=== PATIENT | male | born 1945 | race Caucasian/White ===

== ENCOUNTER 2017-05-11 06:58 | Inpatient (IN) ==
--- NOTE | 2017-05-10 20:54 | Discharge Summary ---
<Louie Sethi - Last Filed: 05/11/17 08:17> Date of Encounter: 05/11/17 - Discharge Diagnosis (1) Left rotator cuff tear arthropathy Priority: Primary Status: Chronic (2) Status post reverse total shoulder replacement Priority: Primary Status: Acute Qualifiers: Laterality: left Qualified Code(s): Z96.612 - Presence of left artificial shoulder joint - Discharge Medications Home Medications: OxyCODONE Immed Rel [Roxicodone 5 MG] 5 mg PO Q6HR PRN 7 Days #28 tablet [Rx] Fluticasone Propionate Nasal [Flonase] 1 spray NS DAILY 05/11/17 [History] Loratadine [Claritin] 10 mg PO DAILY 05/11/17 [History] Meloxicam 15 mg PO DAILY 05/11/17 [History] Mv-Mn/FA/Vit K/Lycop/Lut/Coq10 [Daily Multivitamin Capsule] 1 tab PO DAILY 05/11 [History] Simvastatin [Zocor] 40 mg PO HS 05/11/17 [History] Tramadol HCl [Ultram] 100 mg PO BID PRN 05/11/17 [History] Vitamin E 1,000 unit PO DAILY 05/11/17 [History] Allergies/Adverse Reactions: 3 Allergy/AdvReac Type Severity Reaction Status Date / Time No Known Allergies Allergy Verified 05/11/17 07:23 Primary care physician: PCP NONE - Patient Status Disposition: Home, Self-Care Condition: Good - Discharge Instructions Follow Up With: Louie Sethi MD [Partnered Physician] - 06/10/17 4:35 pm Uma Rudolph PAC [Physician Candy Vendor] - 05/21/17 1:30 pm NONE,PCP [Primary Care Provider] - Additional Instructions: Discharge Instructions: Total Shoulder Please call [facility] ([phone]), your Primary Care Physician, or report to the Emergency Room if you have any of the following symptoms: Nausea, vomiting, fever greater that 101.5, swelling, chest pain, shortness of breath, increased pain/redness/drainage/odor for your incision site, numbness/ tingling, or any other concerning symptoms. ACTIVITY: Always keep your arm in the sling. Do not raise your arm away from your body. Do not use your arm to help with getting in or out of bed. No weight bearing permitted. Only perform those exercises given to you by your therapist. MEDICATIONS: Upon discharge resume your home medications. Take all the medications as prescribed. Take a stool softener if taking narcotic pain medications. Stool softeners are only effective if you drink enough fluids. Drink 6-8 glass of water or fluids a day, unless this is not allowed for another health problem. Despite using stool softeners, if you haven't had a bowel movement in 3 days, please switch to a gentle laxative. Gentle laxatives are sold over the counter. You should have a bowel movement within 24 hours, if not call the office. You will be discharged from the hospital with a prescription for pain medication. You are encouraged to decrease the use of narcotic pain medication as tolerated. Should you require a refill, please call the office. [facility] prescribes narcotic pain medication for only 4-6 weeks after surgery. If you require pain medication beyond this time period, you may be referred to your Primary Care Physician or to the Pain Clinic for further evaluation. Plan ahead for refills on pain medication as many narcotics either need to be picked up at the office or mailed. It is best to call 48-72 hours in advance of needing a prescription refill so you don't run out of medication. To help control the post-operative pain, you may take NSAIDs (Aleve,Advil, Motrin, Ibuprofen, Naprosyn) or Tylenol as prescribed on the bottle in addition to the pain medication. WOUND CARE: Leave the dressing on for 7-10 days. You may change the dressing if it becomes saturated greater than 50%. Do not get the dressing wet at anytime. Wash your hands with antibacterial soap, rinse and dry prior to any wound care. If you have raissa the visiting nurse or rehab facility can remove the stapes 10-14 days after surgery and place steri-strips across the wound. Leave the steri-strips in place until they fall off on their own. You may let water from the shower run on top of the steri-strips. If you do not have a visiting nurse or rehab facility, you will need to return to the office at 10-14 days for the raissa to be removed. If you have itching or redness around the dressing call the office. FOLLOW-UP: Please follow up with your surgeon in the orthopedic clinic, as scheduled - Hospital Course Hospital course: Mr. Tong is a 72 year old male - Time Spent with Patient Total time spent providing and/or coordinating discharge services: <Uma Rudolph - Last Filed: 05/13/17 11:32> Date of Encounter: 05/13/17 Time of Encounter: 11:30 - Discharge Diagnosis (1) Left rotator cuff tear arthropathy Priority: Primary Status: Chronic (2) Status post reverse total shoulder replacement Priority: Primary Status: Acute Qualifiers: Laterality: left Qualified Code(s): Z96.612 - Presence of left artificial shoulder joint (3) HLD (hyperlipidemia) Priority: Secondary Status: Chronic Qualifiers: Hyperlipidemia type: unspecified Qualified Code(s): E78.5 - Hyperlipidemia , unspecified Primary care physician: PCP NONE - Patient Status Functional capacity at discharge: independent ambulation Overall status at discharge: patient is back to baseline - Hospital Course Hospital course: Mr. Tong is a 72 year old male - Time Spent with Patient Total time spent providing and/or coordinating discharge services:
[2017-05-11] MEDS ORDERED: Ethanol\\Acetic Acid\\Na Ace\\Ben 1,000 ML IRRIG.SOLN IR ONE (07:16)
--- NOTE | 2017-05-11 07:39 | Anesthesia Evaluation PreOp ---
Date of Encounter: 05/11/17 Time of Encounter: 07:37 - Past History Planned Operation: Left shoulder, reverse ball and socket Cardiac History: Hyperlipidemia Pulmonary History: Denies Any Significant HX PROOFER PREPRESS History: Denies Any Significant HX Other Medical History: Denies Any Significant HX Anesthesia History: No Prior Anesthetic Complications, Past Anesthesia (cathy TKR , hernia, spine, L forearm, L heel bone spur removal, R foot bone removed) Medications and Allergies OxyCODONE Immed Rel [Roxicodone 5 MG] 5 mg PO Q6HR PRN 7 Days #28 tablet [Rx] Fluticasone Propionate Nasal [Flonase] 1 spray NS DAILY 05/11/17 [History] Loratadine [Claritin] 10 mg PO DAILY 05/11/17 [History] Meloxicam [Meloxicam] 15 mg PO DAILY 05/11/17 [History] Mv-Mn/FA/Vit K/Lycop/Lut/Coq10 [Daily Multivitamin Capsule] 1 tab PO DAILY 05/11 [History] Simvastatin [Zocor] 40 mg PO HS 05/11/17 [History] Tramadol HCl [Ultram] 100 mg PO BID PRN 05/11/17 [History] Vitamin E 1,000 unit PO DAILY 05/11/17 [History] 3 Allergy/AdvReac Type Severity Reaction Status Date / Time No Known Allergies Allergy Verified 05/11/17 07:23 - Meds/Allergy Pre-op Review Medications Reviewed: Yes Allergies Reviewed: Yes Beta Blockers on Current Med List: No Anesthesia Results - Labs Laboratory Tests 04/30/17 04/30/17 04/30/17 11:16 11:16 11:16 WBC 5.1 Hgb 13.3 Hct 41.7 Plt Count 215 PT 10.8 INR 1.0 APTT 28.8 Sodium 140 Potassium 4.1 Chloride 106 Carbon Dioxide 25 BUN 15 Creatinine 0.83 Est GFR ( Amer) > 60 Est GFR (Non-Af Amer) > 60 BUN/Creatinine Ratio 18 Glucose 82 Calculated Osmolality 290 Calcium 9.6 Anesthesia Exam Last Vital Signs Temp 98.1 F 05/11/17 07:18 Pulse 68 05/11/17 07:18 Resp 18 05/11/17 07:18 BP 159/93 05/11/17 07:18 Pulse Ox 97 05/11/17 07:18 Weight: 94 kg NPO (# of Hours): > 8 hrs - HEENT Pupil (Motor): Pupils equal, EOMI Mallampati: III Teeth: Normal Oral Opening: Greater than 3 - PROOFER PREPRESS LOC: Oriented PROOFER PREPRESS Motor: Normal RUE, Normal LUE, Normal RLE, Normal LLE, Normal Face - Cardiac Rhythm: Regular Murmur: None - Pulmonary Breath Sounds: bilateral Clear Respiratory Effort: Symmetrical Anesthesia Assess/Plan ASA Score: 2 Modified Vivek Scale for Level of Consciousness: Cooperative, oriented, and tranquil Anesthetic Plan: General, Regional Monitoring Plan: Standard Monitors Recovery Plan: PACU
[2017-05-11] MEDS ORDERED: CeFAZolin Pre 2,000 MG/100 ML 2,000 MG/100 ML BAG IVPB ONE (07:59)
[2017-05-11] MEDS ORDERED: Ringers Solution, Lactated 1,000 ML IVC SCH ×2 (08:00→10:38)
--- NOTE | 2017-05-11 08:01 | History & Physical Report ---
Date of Encounter: 05/11/17 Time of Encounter: 08:01 24 Hour HP Update - Instructions Instructions: If the History and Physical is less than 30 days old and was completed prior to A.M. admission and or procedure and has NOT been updated on calendar day of procedure please complete this update prior to performing procedure. - Update Patient reports changes in Medical Condition: No Changes in examination, assessment, or condition: No Changes in Medication: No Preop tests/diagnostics Reviewed: Yes Surgery Remains Indicated: Yes Consent for Planned Operative Procedure(s) Verified: Yes - Pre-Operative Checklist Preoperative Checklist Indicated: No Prophylactic Antibiotic Ordered: Yes Is VTE Prophylaxis Indicated?: Yes
[2017-05-11] MEDS ORDERED: Dexamethasone 4 MG/ML VIAL ONE ×2 (08:05→08:41)
[2017-05-11] MEDS ORDERED: ROPIVACAINE HCL/PF 0.5% 30 ML VIAL ONE ×2 (08:05→08:41)
[2017-05-11] MEDS ORDERED: Acetaminophen IV 1,000 MG/100 ML INFUS..BTL ONE (08:41)
[2017-05-11] MEDS ORDERED: *HR* Midazolam HCl 2 MG/2 ML VIAL ONE (08:41)
[2017-05-11] MEDS ORDERED: *HR* FentaNYL (PF) 100 MCG/2 ML VIAL ONE (08:41)
[2017-05-11] MEDS ORDERED: *HR* Propofol 200 MG/20 ML VIAL IVP ONE (08:41)
[2017-05-11] MEDS ORDERED: Lidocaine -MPF 2% 2 ML VIAL ONE (08:41)
[2017-05-11] MEDS ORDERED: Ketorolac 30 MG/ML VIAL ONE (08:43)
[2017-05-11] MEDS ORDERED: *HR* HYDROmorphone (PF) 1 MG/ML SYRINGE IVP PRN ×2 (08:50→10:38)
[2017-05-11] MEDS ORDERED: Ondansetron 4 MG/2 ML VIAL IVP PRN ×2 (08:50→10:38)
--- NOTE | 2017-05-11 08:55 | Anesthesia Procedures ---
Date of Encounter: 05/11/17 Time of Encounter: 08:30 Procedures: Anesthesia - Nerve Block Procedure Date: 05/11/17 Time: 08:30 Allergies/Adv Reactions: nka Pre-op Diagnosis: left shoulder RC arthropathy Surgical Procedure: left TSA reverse Checklist: Correct Patient Identifier, Correct procedure, History checked Correct side: Left Blood Thinner: No Monitor Applied: EKG, BP, Pulse Oximetry Supplemental Oxygen via Nasal Cannula (L/min): 2 Sedation: Versed (mg): 2 Sedation: Fentanyl (mcg): 100 Indication: Post Op Analgesia Pre-op Neuro Deficits: No Block Type: Interscalene (25mL), Other (CP 5mL) Catheter placed: No Sterile Technique: Yes Ultrasound used: Yes Anatomy identified: Yes Visual spread of Local: Yes Neuro Stimulation: No Blood on Needle Aspiration: No Smooth Injection of Local: Yes Pain with Injection of Local: No Prep: Chlorhexadine Needle: 22 x 50 mm Stimuplex Local: Ropivacaine, Other (decadron 10mg) Volume (cc): 30 Number of Attempts: 1 Complications: None/effective block Vitals: Vital Signs/O2 Sat/Glucose, Most Recent Temp Pulse Resp BP Pulse Ox 98.1 F 61 16 157/91 99 05/11/17 07:18 05/11/17 08:29 05/11/17 08:29 05/11/17 08:29 05/11/17 08:29
--- NOTE | 2017-05-11 09:23 | Orthopedic Operative Note ---
Date of procedure: 05/11/17 Pre-op diagnosis: Left shoulder cuff tear arthropathy Post-op diagnosis: same Procedure: Procedure: Left Total Shoulder Replacment Reverse, biceps tenodesis Estimated blood loss: 100 cc Hardware: Metal and polyethylene replacement: Arthrex large glenoid baseplate, 2 4.5 screws. 1 6.5 screw, 42+4 glenosphere, 12 humeral stem, poly insert 6 Exam Under anesthesia: Full motion no instability Procedural Notes: Grade 3 arthritic changes humeral head glenoid socket, irreparable tear supraspinatus tendon. Operative procedure: The patient was brought to the operating room and placed on the operating room table. After general anesthesia was administered the operative shoulder was examined. Findings were noted. The patient was placed in the modified beachchair position. All pressure points were padded appropriately. And the head was stabilized in the neutral position. The operative extremity was prepped and draped in the sterile surgical fashion. The patient received IV antibiotics prior to skin incision. A standard deltopectoral approach was made to the operative shoulder. Incision was made to the skin and subcutaneous tissue,hemo stasis was obtained with Bovie cautery. Using careful blunt dissection the cephalic vein was identified and mobilized medially. The deltopectoral interval was developed and the clavipectoral fascia was incised. The subscap was released off the lesser tuberosity and tagged with #2 FiberWire suture subscap was irreparable. The humerus was dislocated patient noted to have irreparable tear supraspinatus tendon, and the humeral cut was made along the anatomic neck. Patient noted to have grade 3 arthritic changes humeral head. Anterior and posterior Bankart retractors were placed to expose the glenoid. Patient at that grade 3 arthritic changes glenoid socket. The glenoid guide was seated and the centering hole was made. It was reamed with the appropriate reamer. The large baseplate was seated and secured with (2) 4.5 screws and one 6.5 screw. The baseplate was irrigated and dried and the 42+4 Glenosphere was seated and secured with the Morrison taper. The Morrison taper was tested and found to be secure the humerus was redislocated and prepared with the diaphyseal reamers, followed by a broaching process up to the appropriate size 12 in the patient's anatomic version. The metaphyseal reamer was then utilized. Trial reduction found the shoulder to be relocatable. Trial components were removed and drill holes were placed in the lesser tuberosity. They were filled with #5 FiberWire suture incorporating the biceps tendon. The appropriate 12 stem was impacted in place in the patient's anatomic version. Trial reduction found the shoulder to be relocatable and stable with the appropriate 6 Trial component was removed and the real 6 Kristen was seated and secured the shoulder was reduced. The shoulder had excellent motion and excellent stability and no evidence of dislocation. The deep tissue was irrigated with pulse irrigation. The biceps was tenodesed, the PA close the shoulder. The deltopectoral interval was closed with a running #1 PDS suture, subcutaneous tissue was irrigated and closed with 0 PDS suture, the skin was closed with Dermabond. The patient was placed in a sterile dressing, abduction brace and extubated. The patient was then transferred to the recovery room in stable condition. Anesthesia: DUYEN Surgeon: Louie Sethi Laboratory Mechanic Helper: Nessa Wyatt Condition: stable Disposition: PACU
[2017-05-11] MEDS ORDERED: *HR* Labetalol 20 MG/4 ML SYRINGE IVP PRN (09:43)
--- NOTE | 2017-05-11 10:16 | Anesthesia Evaluation Post Op ---
Date of Encounter: 05/11/17 Time of Encounter: 10:15 - Vital Signs Vital Signs: Vital Signs/O2 Sat, Most Current Temp Pulse Resp BP Pulse Ox 97.8 F 61 12 166/91 98 05/11/17 10:08 05/11/17 10:08 05/11/17 10:08 05/11/17 10:08 05/11/17 10:08 - Lungs Lungs: Clear Ascult./Percussion - Airway Airway: Non-obstructed - Cardiovascular Regular Rate - Mental Status Mental Status: Alert & Oriented, Answers Appropriately - Pain Pain Scale: 0 - Nausea Vomiting Nausea Vomiting: Not Present - Hydration Hydration: Ice chips, Has not voided - Discharge PostOp Status: Transfer Patient to floor
[2017-05-11 10:28] LABS: Hematocrit 39.2 % (37.5-50.1); Hemoglobin 12.1 g/dL (12.9-16.9)
[2017-05-11] MEDS ORDERED: Loratadine 10 MG TABLET PO SCH (10:38)
[2017-05-11] MEDS ORDERED: Naloxone 0.4 MG/ML INJ IVP PRN (10:38)
[2017-05-11] MEDS ORDERED: *HR* OxyCODONE Immed Rel 5 MG TABLET PO PRN ×2 (10:38)
[2017-05-11] MEDS ORDERED: Fluticasone Propionate Nasal 50 MCG/SPRAY BOTTLE NS SCH (10:38)
[2017-05-11] MEDS ORDERED: traMADol 50 MG TABLET PO PRN (10:38)
[2017-05-11] MEDS ORDERED: Multivit/Ca/Min/Fe/FA 1 TAB TABLET PO SCH (10:38)
[2017-05-11] MEDS ORDERED: ceFAZolin 2,000 MG in D5% in Water 100 ML IVPB SCH (12:00)
[2017-05-11 14:44] VITALS: BP 140/82
[2017-05-11] MEDS ORDERED: *HR* Enoxaparin 30 MG/0.3 ML SYRINGE SQ SCH ×4 (15:05→18:00)
--- NOTE | 2017-05-11 20:27 | Electrocardiograph Report ---
[place] [id number] Test Date: 2017-05-11 Pat Name: Bhavin Tong Department: [id number] Room: [facility] Gender: M Computer Salesperson Retail: YOEL : 1945 Requested By: Louie Sethi Order Number: [id number] Reading MD: Chetan Moody MD Measurements Intervals [place] Rate: 60 P: 3 ID: [id number] QRS: 6 QRSD: 100 T: 25 QT: 403 QTc: 404 Interpretive Statements SINUS RHYTHM BASELINE ARTIFACT Electronically Signed On 05-11-2017 20:25:25 EDT by Chetan Moody MD
[2017-05-11] MEDS ORDERED: MOM Conc 10 ML UD.LIQ PO PRN (21:00)
[2017-05-11] MEDS ORDERED: Sennosides 8.6 MG TABLET PO PRN (21:00)
[2017-05-11] MEDS ORDERED: Temazepam 15 MG CAPSULE PO PRN (21:00)
== END 2017-05-11 16:25 | disposition home or self-care (01) | DRG 483 ==
LOC: SAMDAY 06:58 → 3NENU 10:29
PROVIDERS: ADMIT Orthopaedic Surgery; ATTEND Orthopaedic Surgery

== ENCOUNTER 2018-02-05 12:26 | Inpatient (IN) ==
--- NOTE | 2018-02-05 13:11 | Anesthesia Evaluation PreOp ---
Date of Encounter: 02/05/18 Time of Encounter: 13:09 - Past History Planned Operation: Left Total Shoulder Cardiac History: Hyperlipidemia Pulmonary History: Denies Any Significant HX MOLDING PRESS OPERATOR History: Denies Any Significant HX Other Medical History: Denies Any Significant HX Anesthesia History: No Prior Anesthetic Complications, Past Anesthesia (cathy TKR , hernia, spine, L forearm, L heel bone spur removal, R foot bone removed, Left TSR) Alcohol Use: none Drug use: none Medications and Allergies OxyCODONE Immed Rel [Roxicodone 5 MG] 5 mg PO Q6HR PRN 7 Days #28 tablet [Rx] Fluticasone Propionate Nasal [Flonase] 1 spray NS DAILY 05/11/17 [History] Loratadine [Claritin] 10 mg PO DAILY 05/11/17 [History] Meloxicam 15 mg PO DAILY 05/11/17 [History] Mv-Mn/FA/Vit K/Lycop/Lut/Coq10 [Daily Multivitamin Capsule] 1 tab PO DAILY 05/11 [History] Simvastatin [Zocor] 40 mg PO HS 05/11/17 [History] Tramadol HCl [Ultram] 100 mg PO BID PRN 05/11/17 [History] Vitamin E 1,000 unit PO DAILY 05/11/17 [History] 3 Allergy/AdvReac Type Severity Reaction Status Date / Time No Known Allergies Allergy Verified 05/11/17 07:23 - Meds/Allergy Pre-op Review Medications Reviewed: Yes Allergies Reviewed: Yes Beta Blockers on Current Med List: No Anesthesia Results - Labs Laboratory Tests 04/30/17 04/30/17 04/30/17 11:16 11:16 11:16 WBC 5.1 Hgb Hct Plt Count 215 INR 1.0 Sodium 140 Potassium 4.1 Chloride 106 Carbon Dioxide 25 BUN 15 Creatinine 0.83 05/11/17 09:55 WBC Hgb 12.1 L Hct 39.2 Plt Count INR Sodium Potassium Chloride Carbon Dioxide BUN Creatinine - Imaging EKG: report reviewed (SR) Anesthesia Exam O2 Sat Height 1.83 m Height 1.83 m Weight 97.069 kg Weight 97.069 kg O2 Sat by Pulse Oximetry 99 Vital Signs Temp Pulse Resp BP Pulse Ox 98.4 F 65 18 155/86 99 02/05/18 12:43 02/05/18 12:43 02/05/18 12:43 02/05/18 12:43 02/05/18 12:43 NPO (# of Hours): > 8 hrs Pain Scale: 0 Pain Scale Used: Numeric (1 - 10) - HEENT Pupil (Motor): Pupils equal, EOMI Mallampati: III Teeth: Normal Oral Opening: Greater than 3 - MOLDING PRESS OPERATOR LOC: Oriented MOLDING PRESS OPERATOR Motor: Normal RUE, Normal LUE, Normal RLE, Normal LLE, Normal Face MOLDING PRESS OPERATOR Sensory: Normal: RUE, LUE, RLE, LLE, Face - Cardiac Rhythm: Regular Murmur: None JVD: No Carotid Bruit: No - Pulmonary Breath Sounds: bilateral Clear Respiratory Effort: Symmetrical Anesthesia Assess/Plan ASA Score: 2 Modified Vivek Scale for Level of Consciousness: Cooperative, oriented, and tranquil Anesthetic Plan: General, Regional Autologous Blood: Yes Monitoring Plan: Standard Monitors Recovery Plan: PACU
[2018-02-05] MEDS ORDERED: Ethanol\\Acetic Acid\\Na Ace\\Ben 1,000 ML IRRIG.SOLN IR ONE (13:12)
--- NOTE | 2018-02-05 13:33 | History & Physical Report ---
Date of Encounter: 02/05/18 Time of Encounter: 13:33 24 Hour HP Update - Instructions Instructions: If the History and Physical is less than 30 days old and was completed prior to A.M. admission and or procedure and has NOT been updated on calendar day of procedure please complete this update prior to performing procedure. - Update Patient reports changes in Medical Condition: No Changes in examination, assessment, or condition: No Changes in Medication: No Preop tests/diagnostics Reviewed: Yes Surgery Remains Indicated: Yes Consent for Planned Operative Procedure(s) Verified: Yes - Pre-Operative Checklist Preoperative Checklist Indicated: No Prophylactic Antibiotic Ordered: Yes Is VTE Prophylaxis Indicated?: Yes
[2018-02-05] MEDS ORDERED: *HR* Succinylcholine 200 MG/10 ML VIAL IVP ONE (13:41)
[2018-02-05] MEDS ORDERED: Lidocaine -MPF 4% 5 ML AMPUL ONE (13:41)
[2018-02-05] MEDS ORDERED: *HR* Propofol 200 MG/20 ML VIAL IVP ONE (13:41)
[2018-02-05] MEDS ORDERED: Ondansetron 4 MG/2 ML VIAL ONE (13:41)
[2018-02-05] MEDS ORDERED: Dexamethasone 4 MG/ML VIAL ONE (13:41)
[2018-02-05] MEDS ORDERED: Lidocaine -MPF 2% 2 ML VIAL ONE (13:41)
[2018-02-05] MEDS ORDERED: *HR* FentaNYL (PF) 100 MCG/2 ML VIAL ONE (13:41)
[2018-02-05] MEDS ORDERED: Balanced Salt Irrig Soln. IR ONE (14:13)
[2018-02-05] MEDS ORDERED: CeFAZolin Syr 2,000MG/20 ML 2,000 MG/20 ML SYRINGE IVPB ONE (14:13)
[2018-02-05] MEDS ORDERED: Ringers Solution, Lactated 1,000 ML IVC SCH ×2 (14:15→17:50)
--- NOTE | 2018-02-05 14:27 | Discharge Summary ---
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 Tong is a 73 year old male Status post revision total shoulder. Patient discharged home same day - Time Spent with Patient Total time spent providing and/or coordinating discharge services: - Discharge Medications Home Medications: OxyCODONE Immed Rel [Roxicodone 5 MG] 5 mg PO Q6HR PRN 7 Days #28 tablet [Rx] Fluticasone Propionate Nasal [Flonase] 1 spray NS DAILY 05/11/17 [History] Loratadine [Claritin] 10 mg PO DAILY 05/11/17 [History] Meloxicam 7.5 mg PO DAILY 05/11/17 [History] Mv-Mn/FA/Vit K/Lycop/Lut/Coq10 [Daily Multivitamin Capsule] 1 tab PO DAILY 05/11 [History] Simvastatin [Zocor] 40 mg PO HS 05/11/17 [History] Tramadol HCl [Ultram] 50 mg PO Q6HR PRN 05/11/17 [History] Vitamin E 1,000 unit PO DAILY 05/11/17 [History] B2/Vits A,C,E/Lut/Zeaxanth/Min [Icaps Tablet] 1 each PO BID 02/05/18 [History] Fluticasone Propionate Nasal [Flonase] 50 mcg NS DAILY 02/05/18 [History] Ginkgo Biloba 40 mg PO BID 02/05/18 [History] Ibuprofen [Motrin Ib] 200 mg PO TID PRN 02/05/18 [History] OxyCODONE Immed Rel [Roxicodone 5 MG] 5 mg PO Q4HR PRN 5 Days #20 tablet [Rx] Allergies/Adverse Reactions: 3 Allergy/AdvReac Type Severity Reaction Status Date / Time No Known Allergies Allergy Verified 05/11/17 07:23 Primary care physician: Herminio Bullock DO - Patient Status Disposition: Home, Self-Care Condition: Good Functional capacity at discharge: independent ambulation Overall status at discharge: patient is progressing back to baseline - Discharge Instructions Follow Up With: Herminio Bullock DO [Primary Care Provider] -
[2018-02-05] MEDS ORDERED: ROPIVACAINE HCL/PF 0.5% 30 ML VIAL ONE (14:30)
[2018-02-05] MEDS ORDERED: Acetaminophen IV 1,000 MG/100 ML INFUS..BTL ONE (14:30)
[2018-02-05] MEDS ORDERED: *HR* PHENYLEPHRINE 1,000 MCG/10 ML SYRINGE IVP ONE (14:30)
--- NOTE | 2018-02-05 15:34 | Anesthesia Procedures ---
Date of Encounter: 02/05/18 Time of Encounter: 15:15 Procedures: Anesthesia - Nerve Block Procedure Date: 02/05/18 Time: 15:15 Allergies/Adv Reactions: nka Pre-op Diagnosis: left aseptic loosening of shoulder h/w Surgical Procedure: left TSA, rev Checklist: Correct Patient Identifier, Correct procedure, History checked Correct side: Left Blood Thinner: No Monitor Applied: EKG, BP, Pulse Oximetry Supplemental Oxygen via Nasal Cannula (L/min): 2 Sedation: Fentanyl (mcg): 100 Indication: Post Op Analgesia Pre-op Neuro Deficits: No Block Type: Interscalene Catheter placed: No Sterile Technique: Yes Ultrasound used: Yes Anatomy identified: Yes Visual spread of Local: Yes Neuro Stimulation: No Blood on Needle Aspiration: No Smooth Injection of Local: Yes Pain with Injection of Local: No Prep: Chlorhexadine Needle: 22 x 50 mm Stimuplex Local: Ropivacaine, Other (decadron 8mg) Volume (cc): 30 Number of Attempts: 1 Complications: None/effective block Vitals: Vital Signs/O2 Sat/Glucose, Most Recent Temp Pulse Resp BP Pulse Ox 98.4 F 65 18 132/80 100 02/05/18 12:43 02/05/18 15:25 02/05/18 12:43 02/05/18 15:25 02/05/18 15:25
[2018-02-05] MEDS ORDERED: EPHEDrine 50 MG/ML VIAL ONE (16:05)
[2018-02-05] MEDS ORDERED: Ondansetron 4 MG/2 ML VIAL IVP ONE (16:14)
[2018-02-05] MEDS ORDERED: *HR* Meperidine 25 MG/ML SYRINGE IVP PRN (16:14)
[2018-02-05] MEDS ORDERED: *HR* OxyCODONE Immed Rel 5 MG TABLET PO PRN ×2 (16:14→17:50)
[2018-02-05] MEDS ORDERED: *HR* Promethazine 25 MG/ML VIAL IVP PRN (16:14)
--- NOTE | 2018-02-05 16:57 | Orthopedic Operative Note ---
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 No evidence of infection. Operative procedure: The patient was brought to the operating room and placed on the operating room table. The patient was placed in the modified beachchair position. All pressure points were padded appropriately. And the head was stabilized in the neutral position. The operative extremity was prepped and draped in the sterile surgical fashion. The patient received IV antibiotics prior to skin incision. A standard deltopectoral approach was made to the operative shoulder. Incision was made to the skin and subcutaneous tissue,hemo stasis was obtained with Bovie cautery. Using careful blunt dissection the cephalic vein was identified and mobilized medially. The deltopectoral interval was developed and the clavipectoral fascia was incised. An extensive debridement was performed, and the shoulder was dislocated. Using an osteotome to clear out the soft tissue, the humeral component was gently removed. Anterior and posterior Bankart retractors were used to expose the glenoid, the glenoid component was removed without incident. First the glenosphere was disengaged, the baseplate was basically free floating and was removed without incident. The 3 screws had fractured no attempt was made to remove the screws due to the large central defect and the concern for more bone loss if the screws were removed. The glenoid guide was seated the centering hole was made the glenoid was reamed with the appropriate reamer. The glenoid was irrigated with an antibacterial solution and then with saline the central defect was packed with bone cancellus stimulating factors. The glenoid baseplate was seated and secured with a 35 mm , 6.5 central screw and 2 36 mm, 4.5 locking screws.. The baseplate was irrigated and dried and the 42+4 glenosphere was seated and secured. Attention was then turned to the humeral side. The humerus was reamed and broached up to its appropriate size 12 in the previous version Trial reduction found the shoulder to be relocatable. Trial components were removed, real implants were seated. Trial reduction found the shoulder to be stable with the appropriate implants 6 metal and 3 Kristen . The trial implants were removed the real implants were seated and secured in the shoulder was reduced. The patient had excellent motion and excellent stability no shuck. The deep tissue was irrigated with pulse irrigation deltopectoral interval was closed with #2 PDS suture over Gelfoam soaked in vancomycin. Superficially the subcutaneous tissue was closed with 0 PDS suture, the skin was closed with skin raissa The patient placed sterile dressing, postoperative brace extubated and transferred to the recovery room in stable condition. Anesthesia: GETA Surgeon: Louie Sethi Was there an human services assistant present: No Estimated blood loss (cc): 200 Condition: stable Disposition: PACU
[2018-02-05] MEDS ORDERED: *HR* Labetalol 100 MG/20 ML MDV IVP PRN (17:08)
--- NOTE | 2018-02-05 17:39 | Anesthesia Evaluation Post Op ---
Date of Encounter: 02/05/18 Time of Encounter: 17:38 - Vital Signs Vital Signs: Vital Signs/O2 Sat, Most Current Temp Pulse Resp BP Pulse Ox 97.0 F L 81 16 164/90 100 02/05/18 17:32 02/05/18 17:32 02/05/18 17:32 02/05/18 17:32 02/05/18 17:32 - Lungs Lungs: Clear Ascult./Percussion - Airway Airway: Non-obstructed - Cardiovascular Regular Rate - Mental Status Mental Status: Alert & Oriented, Answers Appropriately - Pain Pain Scale: 0 Pain Scale used: Numeric (1 - 10) - Nausea Vomiting Nausea Vomiting: Not Present - Hydration Hydration: NPO, Has not voided - Discharge PostOp Status: Transfer Patient to floor
[2018-02-05 17:44] LABS: Hematocrit 39.3 % (37.5-50.1); Hemoglobin 12.7 g/dL (12.9-16.9)
[2018-02-05] MEDS ORDERED: *HR* OxyCODONE/APAP 5/325 TABLET PO PRN (17:50)
[2018-02-05] MEDS ORDERED: Temazepam 15 MG CAPSULE PO PRN (17:50)
[2018-02-05] MEDS ORDERED: Sennosides 8.6 MG TABLET PO PRN (17:50)
[2018-02-05] MEDS ORDERED: Ondansetron 4 MG/2 ML VIAL IVP PRN (17:50)
[2018-02-05] MEDS ORDERED: MOM Conc 10 ML UD.LIQ PO PRN (17:50)
[2018-02-05] MEDS ORDERED: traMADol 50 MG TABLET PO PRN (17:50)
[2018-02-05] MEDS ORDERED: Naloxone 0.4 MG/ML INJ IVP PRN (17:50)
[2018-02-05] MEDS ORDERED: *HR* Enoxaparin 30 MG/0.3 ML SYRINGE SQ SCH ×2 (18:00)
[2018-02-05 18:51] VITALS: BP 113/73
[2018-02-06] MEDS ORDERED: Fluticasone Propionate Nasal 50 MCG/SPRAY BOTTLE NS SCH (09:00)
[2018-02-06] MEDS ORDERED: Loratadine 10 MG TABLET PO SCH (09:00)
== END 2018-02-05 21:16 | disposition home or self-care (01) | DRG 483 ==
LOC: SAMDAY 12:26 → 3NENU 17:54
PROVIDERS: ADMIT Orthopaedic Surgery; ATTEND Orthopaedic Surgery

== ENCOUNTER 2019-08-24 07:49 | Inpatient (IN) ==
[2019-08-24] MEDS ORDERED: Famotidine 20 MG/2 ML VIAL IVP ONE (08:06)
[2019-08-24] MEDS ORDERED: CeFAZolin Syr 2,000MG/20 ML 2,000 MG/20 ML SYRINGE IVPB ONE (08:07)
[2019-08-24] MEDS ORDERED: Celecoxib 200 MG CAPSULE PO ONE (08:07)
[2019-08-24] MEDS ORDERED: Acetaminophen IV 1,000 MG/100 ML INFUS..BTL IVPB ONE (08:07)
[2019-08-24] MEDS ORDERED: Ringers Solution, Lactated 1,000 ML IVC SCH ×3 (08:15→12:43)
[2019-08-24] MEDS ORDERED: *HR* Rocuronium Bromide 50 MG/5 ML VIAL ONE (08:32)
[2019-08-24] MEDS ORDERED: Dexamethasone 4 MG/ML VIAL ONE (08:32)
[2019-08-24] MEDS ORDERED: Ondansetron 4 MG/2 ML VIAL ONE (08:32)
[2019-08-24] MEDS ORDERED: Lidocaine HCL 4 ML Topical Solution (Laryng-O-Jet Kit Sterile Pak) TP ONE (08:32)
[2019-08-24] MEDS ORDERED: *HR* Succinylcholine 200 MG/10 ML VIAL IVP ONE (08:32)
[2019-08-24] MEDS ORDERED: Lidocaine -MPF 2% 2 ML VIAL ONE (08:32)
[2019-08-24] MEDS ORDERED: *HR* Midazolam HCl 2 MG/2 ML VIAL ONE (08:34)
[2019-08-24] MEDS ORDERED: *HR* FentaNYL (PF) 100 MCG/2 ML VIAL ONE (08:34)
[2019-08-24] MEDS ORDERED: *HR* Propofol 200 MG/20 ML VIAL IVP ONE (08:35)
[2019-08-24] MEDS ORDERED: Ropivacaine/PF 0.5% 30 ML VIAL ONE (09:01)
[2019-08-24] MEDS ORDERED: Ethanol\\Acetic Acid\\Na Ace\\Ben 1,000 ML IRRIG.SOLN IR ONE ×2 (09:18→10:51)
[2019-08-24] MEDS ORDERED: ROPIVACAINE/PF/NS 0.25% 1 EACH SYRINGE INTRAART ONE (09:21)
[2019-08-24] MEDS ORDERED: Ondansetron 4 MG/2 ML VIAL IVP ONE (09:56)
[2019-08-24] MEDS ORDERED: *HR* OxyCODONE Immed Rel 5 MG TABLET PO PRN (09:56)
[2019-08-24] MEDS ORDERED: *HR* Labetalol 20 MG/4 ML SYRINGE IVP PRN (09:56)
[2019-08-24] MEDS ORDERED: *HR* HYDROmorphone (PF) 1 MG/ML SYRINGE IVP PRN (09:56)
[2019-08-24] MEDS ORDERED: EPHEDrine 50 MG/ML VIAL ONE (10:04)
[2019-08-24] MEDS ORDERED: *HR* PHENYLEPHRINE 1,000 MCG/10 ML SYRINGE IVP ONE (10:17)
[2019-08-24] MEDS ORDERED: Naloxone 0.4 MG/ML INJ IVP PRN (12:43)
[2019-08-24] MEDS ORDERED: *HR* HYDROcodone/Acet 5/325 mg TABLET PO PRN (12:43)
[2019-08-24] MEDS ORDERED: Fluticasone Propionate Nasal 50 MCG/SPRAY BOTTLE NS SCH (12:43)
[2019-08-24] MEDS ORDERED: GINKGO BILOBA 40 MG PO SCH (12:43)
[2019-08-24] MEDS ORDERED: Loratadine 10 MG TABLET PO SCH (12:43)
[2019-08-24] MEDS ORDERED: MOM Conc 10 ML UD.LIQ PO PRN (12:43)
[2019-08-24] MEDS ORDERED: Sennosides 8.6 MG TABLET PO PRN (12:43)
[2019-08-24] MEDS ORDERED: Ondansetron 4 MG/2 ML VIAL IVP PRN (12:43)
[2019-08-24] MEDS ORDERED: *HR* HYDROcodone/Acet 10/325 mg TABLET PO PRN (12:43)
[2019-08-24 12:51] LABS: Hematocrit 38.3 % (37.5-50.1); Hemoglobin 12.5 g/dL (12.9-16.9)
[2019-08-24 16:31] VITALS: BP 125/75
[2019-08-24] MEDS ORDERED: *HR* Enoxaparin 30 MG/0.3 ML SYRINGE SQ SCH ×2 (18:00)
[2019-08-24] MEDS ORDERED: Vitamin E 200 UNIT (90MG) CAPSULE PO SCH (18:00)
[2019-08-24] MEDS ORDERED: Multivit/Ca/Min/Fe/FA 1 TAB TABLET PO SCH (18:00)
== END 2019-08-24 18:52 | disposition home or self-care (01) | DRG 483 ==
LOC: SAMDAY 07:49 → 3NENU 12:48
PROVIDERS: ADMIT Orthopaedic Surgery; ATTEND Orthopaedic Surgery